=== PATIENT | female | born 1990 | race American Indian/Alaskan Native ===

== ENCOUNTER 2017-07-13 00:47 | Outpatient (CLI) | payer MEDICAID ==
[2017-07-13 01:00] VITALS: BP 117/72
[2017-07-13] MEDS ORDERED: LACTATED RINGERS 1,000 ML IV ONE (01:38)
--- NOTE | 2017-07-13 09:24 | Ultrasound Report ---
OB ULTRASOUND LIMITED: 07/12/17 CLINICAL: Vaginal bleeding and 37 weeks by dates. FINDINGS: Gestation: Ross Position: Cephalic. Placenta: Anterior and right lateral with no previa and no evidence of abruption. Placental Grade: II Heart Rate: 124 BPM IMPRESSION: Single live intrauterine fetus at 37 weeksbased on clinical dating. No placenta previa or placental abruption.
== END 2017-07-13 03:05 | disposition home or self-care (01) ==
LOC: TRG 00:47
PROVIDERS: ATTEND Obstetrics & Gynecology
DX: O46.93 Antepartum hemorrhage, unspecified, third trimester (principal); Z3A.37 37 weeks gestation of pregnancy
CPT/HCPCS: 76815; 96360; J7120

== ENCOUNTER 2017-07-14 01:24 | Outpatient (CLI) | payer MEDICAID ==
[2017-07-14 01:51] VITALS: BP 103/63
[2017-07-14] MEDS ORDERED: PROCARDIA*For Tocolysis only PO ONE (02:13)
[2017-07-14] MEDS: LACTATED RINGERS 1,000 ML IV SCH ×2 (02:32→03:41)
[2017-07-14] MEDS ORDERED: BRETHINE SUB-Q ONE (03:33)
[2017-07-14] MEDS ORDERED: BRETHINE ONE (03:38)
== END 2017-07-14 04:35 | disposition home or self-care (01) ==
LOC: TRG 01:24
PROVIDERS: ATTEND Obstetrics & Gynecology
DX: O47.1 False labor at or after 37 completed weeks of gestation (principal); Z3A.37 37 weeks gestation of pregnancy
CPT/HCPCS: 59025; 96360; 96361; 96372; J3105; J7120

== ENCOUNTER 2017-07-18 10:58 | Inpatient (IN) | payer MEDICAID ==
[2017-07-18] MEDS ORDERED: LACTATED RINGERS 1,000 ML IV ONE (13:10)
[2017-07-18] MEDS ORDERED: MORPHINE IM ONE ×2 (15:47→17:00)
[2017-07-18] MEDS ORDERED: LACTATED RINGERS 1,000 ML ONE (16:41)
[2017-07-18 16:48] LABS: Hematocrit 31.8 % (30.3-42.9); Hemoglobin 10.1 gm/dl (10.1-14.3); Mean Corpuscular HGB Conc 32 % (30-34); Mean Corpuscular Volume 79 fl (79-97); Platelet Count 168 K/mm3 (140-440); Red Blood Count 4.05 M/mm3 (3.65-5.03); Red Cell Distribution Width 18.3 % (13.2-15.2)
[2017-07-18 16:50] LABS: Mean Corpuscular Hemoglobin 25 pg (28-32)
[2017-07-18] MEDS ORDERED: REGLAN ONE (17:18)
[2017-07-18] MEDS ORDERED: BICITRA ONE (17:18)
[2017-07-18] MEDS ORDERED: PEPCID IV ONE ×3 (17:19→17:39)
[2017-07-18] MEDS ORDERED: BICITRA PO ONE ×2 (17:19→17:39)
[2017-07-18] MEDS ORDERED: REGLAN IV ONE ×2 (17:19→17:39)
--- NOTE | 2017-07-18 17:20 | Anesthesia Day of Surgery ---
Anesthesia Day of Surgery - Day of Surgery Patient Examined: Yes Patient H&P Reviewed: Yes Patient is NPO: Yes
--- NOTE | 2017-07-18 17:20 | Anesthesia Consultation ---
Anesthesia Consult and Med Hx Date of service: 07/18/17 - Airway Anesthetic Teeth Evaluation: Good ROM Head & Neck: Adequate Mental/Hyoid Distance: Adequate Mallampati Class: Class II Intubation Access Assessment: Probably Good - Pulmonary Exam CTA: Yes - Cardiac Exam Cardiac Exam: RRR - Pre-Operative Health Status ASA Pre-Surgery Classification: ASA2 Proposed Anesthetic Plan: Spinal - Pulmonary Hx Asthma: Yes (last attack during 2015, inhaler at home) - Cardiovascular System Hx Hypertension: No - Central Nervous System Hx Seizures: No Hx Psychiatric Problems: No - Endocrine Hx Renal Disease: No Hx Hypothyroidism: No Hx Hyperthyroidism: No - Hematic Hx Anemia: No Hx Sickle Cell Disease: No - Other Systems Hx Alcohol Use: No
[2017-07-18] MEDS ORDERED: MORPHINE ONE (17:29)
--- NOTE | 2017-07-18 17:44 | History and Physical Report ---
History of Present Illness Date of examination: 07/18/17 Chief complaint: contractions History of present illness: Pt is a 27 year old -[place]ub[place] female SIENNA 08/02/17 at 37w6d who presents with contractions since last night that are worsening. She made no cervical change but began to have repetitive variable decelerations during her period of observation. She denies vaginal bleeding or leakage of fluid. She has had care at [facility] since 19 wks complicated by IUGR followed by MFM, asthma on ventolin, h/o two deliveries at 36 wks, alpha thalassemia carrier, anemia and previous x 3 that declines tubal ligation. She is GBS Negative. Past History Past Medical History: asthma, hematologic disorders (alpha thalassemia carrier ) Past Surgical History: section (x 3; 2009, 2011, 2015 ) Family/Genetic History: heart disease Social history: no significant social history - Obstetrical History Expected Date of Delivery: 08/02/17 Actual Gestation: 37 Week(s) 6 Day(s) : 5 Para: 1 Hx # Term Pregnancies: 1 Number of Pregnancies: 2 Spontaneous Abortions: 1 Induced : 0 Number of Living Children: 3 Medications and Allergies Allergies Allergy/AdvReac Type Severity Reaction Status Date / Time No Known Allergies Allergy Verified 07/13/17 00:50 Home Medications Medication Instructions Recorded Confirmed Last Taken Type No Known Home Medications [No 07/18/17 07/18/17 Unknown History Reported Home Medications] Active Meds: Active Medications Cefazolin Sodium (Ancef/Sterile Water 2 Gm/20 Ml) 2 gm in 20 mls @ 80 mls/hr IV PREOP NR PRN Reason: Protocol Stop: 07/19/17 17:59 Lactated Ringer's (Lactated Ringers) 1,000 mls @ 2,250 mls/hr IV PREOP DHAVAL Stop: 07/19/17 18:27 Oxytocin/Sodium Chloride (Pitocin/Ns 20 Unit/1000ml Drip) 20 units in 1,000 mls @ 0 mls/hr IV TITR DHAVAL PRN Reason: As Directed Review of Systems All systems: negative - Vital Signs Vital signs: Vital Signs Temp Pulse Resp BP 98.2 F 74 15 112/73 07/18/17 12:16 07/18/17 12:16 07/18/17 12:16 07/18/17 12:16 Temp Pulse Resp BP Pulse Ox 98.2 F 76 15 112/73 98 07/18/17 12:16 07/18/17 17:12 07/18/17 12:16 07/18/17 12:20 07/18/17 17:12 - Physical Exam Breasts: Positive: deferred Abdomen: Positive: soft (gravid ) Uterus: Positive: enlarged (gravid ) - Obstetrical FHR: category 2 Uterine Contraction Monitor Mode: External Uterine Contraction Pattern: Irregular Uterine Contraction Intensity: Moderate Results Result Diagrams: 07/18/17 16:37 Abnormal lab results 07/18/17 Range/Units 16:37 WBC 14.0 H (4.5-11.0) K/mm3 MCH 25 L (28-32) pg RDW 18.3 H (13.2-15.2) % All other labs normal. Assessment and Plan A; IUP at 37w6d Non-reassuring status Previous x 3 IUGR Asthma P: Proceed with repeat section and other indicated procedures.
[2017-07-18] MEDS ORDERED: WATER FOR IRRIG STERILE IR ONE (17:45)
[2017-07-18] MEDS ORDERED: NACL 0.9% IR ONE (17:45)
[2017-07-18] MEDS ORDERED: NEO SYNEPHRINE/NS Syringe(OR USE) IV ONE (18:00)
[2017-07-18] MEDS ORDERED: PITOCin/NS 20 UNIT/1000ML DRIP 20 UNITS/1,000 ML BAG IV SCH ×3 (18:00→21:20)
[2017-07-18] MEDS ORDERED: LACTATED RINGERS 1,000 ML IV SCH ×2 (18:00)
[2017-07-18] MEDS ORDERED: ANCEF/STERILE WATER 2 GM/20 ML 2 GM/20 ML SYRINGE IV NR (18:00)
[2017-07-18] MEDS ORDERED: ZOFRAN ONE (18:36)
--- NOTE | 2017-07-18 19:30 | Operative Report ---
Operative Report Operative Report: Date of procedure: July 18, 2017 Preoperative diagnosis: 1) IUP at 37w6d 2) Non-reassuring status 3) Previous x 3 Postoperative diagnosis: Same Procedure: Repeat low transverse section Surgeon: Sarai Seth M.D. Anesthesia: Spinal Findings: 1) Viable male , Apgars 2 and 9, weight 2028 g, (4 lb 8 oz) 2) Normal-appearing uterus ovaries and tubes Estimated blood loss: 800 mL IV fluids: 2000 mL Urine output: 150 mL, clear at the end of the procedure Drains: Dumont to gravity Specimens: Placenta to pathology Complications: None. Counts correct 3 Disposition: Stable to PACU Indication for procedure: The patient is a 27-year-old -Bhut[place] at 37 weeks 6 days with a history of 3 previous sections and IUGR who initially presented for contractions and began to have repetitive deep variable decelerations down to the 90s while in observation in triage. The decision was made to proceed with repeat section. Operation in detail: After the risks, benefits, alternatives and complications were explained to the patient she gave informed consent for the procedure. She was subsequently taken to the operating room where spinal anesthesia was noted to be adequate. She was subsequently placed in the dorsal supine position with leftward tilt and prepped and draped in a normal sterile fashion. heart tones were noted to be in the 110s prior to incision. A timeout was performed. A Pfannenstiel skin incision was made with the knife and carried down to the layer of the fascia with the Bovie. The fascia was incised in the midline and the fascial incision was extended bilaterally with the Bovie. Attention was then turned to the superior aspect of the incision which was grasped with two Kochers, tented up, and dissected off the rectus muscles. Attention was then turned to the inferior aspect of the incision which was grasped with two Kochers , tented up and dissected off the rectus muscles. The rectus muscles were then in the midline. The peritoneum was then entered bluntly. The peritoneal incision was extended with good visualization of the bladder. The peritoneal incision was then stretched. An Edy self-retaining retractor was placed for visualization. The bladder blade was placed. The vesicouterine peritoneum was grasped with smooth pickups and incised with Metzenbaum scissors. Metzenbaum scissors were used to extend the incision bilaterally. The bladder flap was then created digitally and the bladder blade was replaced. A transverse incision was made in the lower uterine segment with a knife and extended bilaterally with the bandage scissors. The head was delivered without difficulty followed by shoulders and body. was bulb suctioned at delivery. The cord was clamped and cut and the was handed to NICU staff in attendance. Cord blood was collected. The placenta was then delivered manually. The uterus was then exteriorized and cleared of all clots and debris. The hysterotomy was then reapproximated with 0 Vicryl in a running locked fashion. A second layer of the same suture was used in imbricating fashion. The hysterotomy was inspected and hemostasis was noted. The Edy self-retaining retractor was removed. The gutters were irrigated and cleared of all clots and debris. The hysterotomy was again inspected. Additional [id number] of 2- 0 Vicryl were used to obtain hemostasis on the right side of the incision. Hemostasis was noted. Surgicel was placed over the hysterotomy. Interceed was placed over the anterior surface of the uterus. The peritoneum and rectus muscles were then reapproximated with 2-0 Vicryl in a running fashion. The fascia was reapproximated with 0 Vicryl in a running fashion. The skin was reapproximated with 4-0 Vicryl in a subcuticular fashion. The incision was then covered with steri strips and a pressure dressing. The procedure was then ended. The patient tolerated the procedure well and was taken to the PACU in stable condition. All instrument, lap, and needle counts were correct 3.
--- NOTE | 2017-07-18 19:30 | Procedure Note ---
OB Delivery Note - Delivery Date of Delivery: 07/18/17 Surgeon: JUSTIN CATES Estimated blood loss: other (800 mL) - Section Preop diagnosis: repeat , nonreassuring FHR tracing Postop diagnosis: same section procedure: section, repeat low transverse Disposition: PACU Complications: none Narrative: Please see operative note. - A at 1 minute: 2 at 5 minutes: 9 Gender: Male (2028g (4lb 8oz) @ 1822 pm)
--- NOTE | 2017-07-18 19:38 | Post Anesthesia Evaluation ---
- Post Anesthesia Evaluation Patient Participated: Yes Airway Patent: Yes Stable Respiratory Function: Yes Nausea/Vomiting: No Temp > 96.8F: Yes Pain Manageable: Yes Adequeate Hydration: Yes Anesthesia Complications: No Block Receding Appropriately: Yes Patient on Ventilator: No
[2017-07-18] MEDS ORDERED: BENADRYL IV PRN (19:40)
[2017-07-18] MEDS ORDERED: PERCOCET 5/325 PO PRN (19:40)
[2017-07-18] MEDS ORDERED: ZOFRAN IV PRN (19:40)
[2017-07-18] MEDS ORDERED: SODIUM CHLORIDE FLUSH SYRINGE 10 ML IV SCH (20:00)
[2017-07-18] MEDS: TORADOL IV PRN (20:09)
[2017-07-18] MEDS ORDERED: SENOKOT PO PRN (21:20)
[2017-07-18] MEDS ORDERED: SODIUM CHLORIDE FLUSH SYRINGE 10 ML IV NR (21:20)
[2017-07-18] MEDS ORDERED: NARCAN 0.4 MG/1 ML IV PRN (21:20)
[2017-07-18] MEDS ORDERED: TYLENOL PO PRN (21:20)
[2017-07-18] MEDS ORDERED: TUCKS PAD TP PRN (21:20)
[2017-07-18] MEDS ORDERED: MORPHINE IV PRN ×2 (21:20)
[2017-07-18] MEDS ORDERED: ANCEF/NS 1 GM/50 ML 1 GM/50 ML BAG IV SCH (21:20)
[2017-07-18] MEDS ORDERED: TORADOL IV PRN (21:20)
[2017-07-18] MEDS ORDERED: ceFAZolin 1 GM in NACL 0.9% 20 ML IV SCH (21:45)
[2017-07-18] MEDS: D5LR 1,000 ML IV SCH (21:49)
[2017-07-19] MEDS ORDERED: ceFAZolin 2 GM in NACL 0.9% 20 ML IV SCH
[2017-07-19] MEDS: ceFAZolin 1 GM in NACL 0.9% 20 ML IV SCH ×2 (02:45→10:00)
[2017-07-19] MEDS ORDERED: M-M-R II VACCINE SUB-Q ONE (06:00)
[2017-07-19] MEDS ORDERED: BOOSTRIX IM ONE (06:05)
[2017-07-19] MEDS: D5LR 1,000 ML IV SCH (07:22)
[2017-07-19 07:52] LABS: Hematocrit 29.3 % (30.3-42.9); Hemoglobin 9.2 gm/dl (10.1-14.3)
[2017-07-19] MEDS ORDERED: PRENATAL VITAMIN PO SCH (10:00)
--- NOTE | 2017-07-19 10:59 | Progress Note ---
Subjective Date of service: 07/19/17 Interval history: 1st POD after Patient is in the bed, comfortable. Pain is well controlled with pain meds. No residual neurological deficit. No anesthesia complications. Objective - Constitutional Vitals: Vital Signs - 12hr 07/19/17 03:00 Temperature 97.7 F Pulse Rate 80 Respiratory 18 Rate Blood Pressure 103/53 [Left] - Labs CBC & Chem 7: 07/19/17 07:36 Labs: Abnormal lab results 07/18/17 07/19/17 Range/Units 16:37 07:36 WBC 14.0 H (4.5-11.0) K/mm3 Hgb 9.2 L (10.1-14.3) gm/dl Hct 29.3 L (30.3-42.9) % MCH 25 L (28-32) pg RDW 18.3 H (13.2-15.2) %
[2017-07-19] MEDS ORDERED: ZOFRAN IM ONE (11:49)
--- NOTE | 2017-07-19 11:49 | Progress Note ---
Assessment and Plan O: VSS AF PP H/H: 7.4/22.6 A: Stable POD #1 S/P C/S #4 Anemia Nausea/Vomiting P: Zofran Subjective - Subjective Date of service: 07/19/17 Patient reports: pain well controlled, ambulating normally, other (Vomiting Clear Liquids. Dumont recently discontinues, unable to void at time of entry), no appetite normal, no voiding normally : doing well Objective - Vital Signs Latest vital signs: Vital Signs Temp Pulse Resp BP BP Pulse Ox 07/19/17 09:17 145 H 100 07/19/17 09:08 98.7 F 79 20 99/59 98 07/19/17 03:00 97.7 F 80 18 103/53 07/18/17 22:18 97.3 F L 83 16 106/50 07/18/17 20:46 96.5 F L 07/18/17 20:40 69 8 L 109/63 88 07/18/17 20:35 111/68 07/18/17 20:30 69 19 111/68 96 07/18/17 20:25 122 H 15 115/61 99 07/18/17 20:20 82 9 L 120/70 93 07/18/17 20:15 77 13 113/67 98 07/18/17 20:11 61 16 119/65 99 07/18/17 20:09 67 16 112/70 97 07/18/17 20:03 71 15 111/68 97 07/18/17 20:02 103/66 07/18/17 20:00 62 13 111/68 99 07/18/17 19:55 66 15 103/66 98 07/18/17 19:50 66 10 L 111/61 07/18/17 19:45 62 15 109/62 89 07/18/17 19:40 64 16 105/59 100 07/18/17 19:39 61 13 105/59 100 07/18/17 19:34 96 F L 64 20 100 07/18/17 17:12 76 98 07/18/17 17:07 82 95 07/18/17 12:20 75 112/73 07/18/17 12:16 98.2 F 74 15 112/73 Intake and Output 07/18/17 07/19/17 07/19/17 22:59 06:59 14:59 Intake Total 2900 1120 Output Total 200 300 Balance 2700 820 Intake: IV 2900 1000 D5lr 1,000 ml @ 125 mls/ 1000 hr IV DIRECT DHAVAL Rx#: [id number] Intake, Free Water 120 Output: Urine 200 300 Indwelling Catheter 300 Other: Total, Output Amount 300 Estimated Blood Loss 800 - Exam Breasts: Present: deferred Lungs: Present: Normal air movement Abdomen: Present: normal appearance, soft, normal bowel sounds. Absent: distention, tenderness Vulva: both: normal Uterus: Present: normal, firm, fundal height below umbilicus (2 below, ML). Absent: bogginess Extremities: Present: normal Incision: Present: normal, dry, intact, dressed - Labs Labs: Abnormal lab results 07/18/17 07/19/17 Range/Units 16:37 07:36 WBC 14.0 H (4.5-11.0) K/mm3 Hgb 9.2 L (10.1-14.3) gm/dl Hct 29.3 L (30.3-42.9) % MCH 25 L (28-32) pg RDW 18.3 H (13.2-15.2) %
[2017-07-19] MEDS: TORADOL IV PRN (15:25)
[2017-07-19] MEDS: FEOSOL PO SCH (22:07)
[2017-07-19] MEDS: COLACE PO SCH (22:07)
[2017-07-20] MEDS: PERCOCET 5/325 PO PRN ×2 (01:43→14:49)
--- NOTE | 2017-07-20 09:06 | Progress Note ---
Assessment and Plan A/P POD 2 repeat csec ambulating well tolerating diet will give mom, ducolax supp and coffee for BM/flatus VSS H/h 10.1-9.2 d/c tomorrow if continued stable Subjective - Subjective Date of service: 07/20/17 Principal diagnosis: repeat csec Patient reports: appetite normal, voiding normally, pain well controlled, ambulating normally [place]: doing well, bottle feeding Objective - Vital Signs Latest vital signs: Vital Signs Temp Pulse Resp BP BP Pulse Ox 07/20/17 02:43 16 07/20/17 01:43 18 07/20/17 01:24 98.7 F 74 17 102/64 98 07/20/17 01:20 98.7 F 97 H 17 102/64 96 07/19/17 16:28 98.7 F 78 16 98/78 100 07/19/17 09:17 145 H 100 07/19/17 09:10 98.0 F 82 20 108/60 100 07/19/17 09:08 98.7 F 79 20 99/59 98 - Exam Breasts: Present: normal Cardiovascular: Present: Regular rate, Normal S1 Lungs: Present: Clear to auscultation, Normal air movement Abdomen: Present: normal appearance, soft, normal bowel sounds. Absent: distention, tenderness, guarding Vulva: both: normal Uterus: Present: normal, firm, fundal height below umbilicus. Absent: bogginess , tenderness Extremities: Present: normal Deep Tendon Reflex Grade: Normal +2 Incision: Present: normal, dry, dressed
--- NOTE | 2017-07-20 09:08 | Discharge Summary ---
Providers - Providers Date of Admission: 07/18/17 17:43 Date of discharge: 07/21/17 Attending physician: JUSTIN CATES Primary care physician: NELSON BUCK MD Hospitalization Reason for admission: active labor Delivery: Procedure: section, repeat low transverse Episiotomy: none Laceration: none Incision: normal, dry, intact Other procedures: none complications: none Discharge diagnosis: IUP at term delivered baby: male Condition at discharge: Good Disposition: DC-01 TO HOME OR SELFCARE Plan - Provider Discharge Summary Activity: routine, no sex for 6 weeks, no strenuous exercise Diet: routine Instructions: routine Additional instructions: [] Smoking cessation referral if applicable(refer to patient education folder for contact #) [] Refer to [facility]'s [facility] Booklet Call your doctor immediately for: * Fever > 100.5 * Heavy vaginal bleeding ( >1 pad per hour) * Severe persistent headache * Shortness of breath * Reddened, hot, painful area to leg or breast * Drainage or odor from incision. * Keep incision clean and dry at all times and follow doctor's instructions regarding bathing/showering - Follow up plan Follow up: NELSON BUCK MD [Primary Care Provider] - 14 Days
[2017-07-20] MEDS ORDERED: DULCOLAX PR PRN (10:00)
[2017-07-20] MEDS: MOTRIN PO PRN ×2 (14:49→21:20)
[2017-07-20] MEDS: FEOSOL PO SCH (21:20)
[2017-07-20] MEDS: COLACE PO SCH (21:20)
[2017-07-21] MEDS: FEOSOL PO SCH ×2 (02:00→10:19)
[2017-07-21] MEDS: MOTRIN PO PRN (03:54)
[2017-07-21] MEDS: COLACE PO SCH (10:19)
[2017-07-21 10:35] VITALS: BP 105/68
== END 2017-07-21 12:35 | disposition home or self-care (01) | DRG 765 ==
LOC: TRG 10:58 → APU 17:43 → OB 21:12
PROVIDERS: ADMIT Obstetrics & Gynecology; ATTEND Obstetrics & Gynecology
PROC: 10D00Z1 Extraction of Products of Conception, Low, Open Approach (ICD-10-PCS; principal; 2017-07-18)
PROC: 3E0234Z Introduction of Serum, Toxoid and Vaccine into Muscle, Percutaneous Approach (ICD-10-PCS; 2017-07-19)
DX: O34.211 Maternal care for low transverse scar from previous cesarean delivery (principal); O99.12 Other diseases of the blood and blood-forming organs and certain disorders involving the immune mechanism complicating childbirth; O36.5930 Maternal care for other known or suspected poor fetal growth, third trimester, not applicable or unspecified; O99.52 Diseases of the respiratory system complicating childbirth; J45.909 Unspecified asthma, uncomplicated; O76 Abnormality in fetal heart rate and rhythm complicating labor and delivery; Z37.0 Single live birth; Z3A.37 37 weeks gestation of pregnancy; Z82.49 Family history of ischemic heart disease and other diseases of the circulatory system; Z23 Encounter for immunization; D56.3 Thalassemia minor
CPT/HCPCS: 36415; 85014; 85018; 85027; 86592; 86850; 86900; 86901; 88307; 90471; C1765; J0690; J1885; J2270; J2370; J2405; J2590; J2765; J7120; J7121